=== PATIENT | female | born 1990 | race Hispanic/Latino ===

== ENCOUNTER 2020-05-05 11:27 | Day surgery (SDC) | payer BC ==
[2020-05-05] MEDS ORDERED: dexAMETHasone 10 MG/ML VIAL ONE (11:52)
[2020-05-05] MEDS ORDERED: propofoL 200 MG/20 ML VIAL IV ONE (11:52)
[2020-05-05] MEDS ORDERED: LIDOCAINE 2% MPF 5 ML VIAL ONE (11:52)
[2020-05-05] MEDS ORDERED: Ringers Lactate 1,000 ML IV ONE (11:52)
[2020-05-05] MEDS ORDERED: FENTANYL CITR 100 MCG/2 ML ONE (11:52)
[2020-05-05] MEDS ORDERED: MIDAZOLAM HCL 2 MG/2 ML INJ ONE (11:52)
[2020-05-05] MEDS ORDERED: ROCURONIUM 50 MG/5 ML VIAL IV ONE (11:52)
[2020-05-05] MEDS ORDERED: ONDANSETRON 4 MG/2 ML VIAL ONE ×2 (11:53→14:54)
[2020-05-05] MEDS ORDERED: CEFOXITIN/SWI 1gm 1 GM/10 ML SYR ONE (11:53)
[2020-05-05 12:13] LABS: Hematocrit 35.2 % (36.0-45.0); MPV 8.9 fL (7.6-11.3); RBC Red Blood Cell Count 4.29 M/uL (3.86-4.86)
[2020-05-05 13:04] LABS: BUN Blood Urea Nitrogen 11 mg/dL (7-18); Bicarbonate 28 mmol/L (21-32); Glucose Level 87 mg/dL (74-106); Potassium 3.9 mmol/L (3.5-5.1); Sodium Level 144 mmol/L (136-145)
[2020-05-05] MEDS ORDERED: GLYCOPYRROLATE 0.2 MG/ML SYR ONE (14:05)
[2020-05-05] MEDS ORDERED: KETOROLAC 30 MG/ML INJ ONE (14:27)
[2020-05-05] MEDS ORDERED: MORPHINE 10 MG/ML VIAL ONE (14:30)
[2020-05-05] MEDS ORDERED: Mastisol Adhesive Liq ONE ×2 (14:31→14:32)
--- NOTE | 2020-05-05 14:31 | P.BOP ---
Preoperative diagnosis: cholecystitis, biliary dyskinesia, morbid obesity Postoperative diagnosis: same plus umbilical hernia Primary procedure: Laparoscopic cholecystectomy Secondary procedure: open umbilical hernia repair Sandwich Board Carrier: Angelica Cheney (Ramses) Estimated blood loss: <10cc Specimen: gb Findings: as above Anesthesia: General Complications: None Transferred to: Recovery Room Condition: Good
[2020-05-05] MEDS: HYDROMORPHONE HCL 1 MG/ML INJ ONE ×4 (14:41→14:56)
[2020-05-05 15:39] VITALS: BP 124/75; TEMP 96.6; O2SAT 96
[2020-05-05] MEDS ORDERED: CODEINE 30MG/APAP 300MG TAB ONE (15:45)
--- NOTE | 2020-05-05 15:53 | OP ---
Date of Procedure: 05/05/2020 Surgeon: Leonel Lawton MD Preoperative Diagnoses: Cholecystitis, right upper quadrant abdominal pain, biliary dyskinesia, morb id obesity. Postoperative Diagnoses: Cholecystitis, right upper quadrant abdominal pain, biliary dyskinesia, mor bid obesity, umbilical hernia. Procedures Performed: Laparoscopic cholecystectomy, repair of umbilical hernia. Anesthesia: General plus local. Specimen: Gallbladder. Indications: This is a case of a female, who comes to us with above diagnoses. Fully explained the benefits, alternatives, and risks of laparoscopic, possible open cholecystectomy, which include, but not limited to infection, bleeding, damage to adjacent structures, anesthesia complication, choledoch olithiasis, bile leak, pancreatitis, [place], and even . She also understands this may not relieve s ymptoms. She might need more than one surgical intervention. She understood, signed a consent. Description Of Procedure: The patient was brought to the operating room, placed in supine position. Anesthesia was done without complication. Abdominal area was prepped and draped in sterile fashion. Marcaine 0.5% was injected for local anesthetic followed by sharp incision of the skin in infraumbi lical region. Incision was carried down to fascia. Immediately, we noticed the patient to have umbi lical hernia. Umbilical sac was removed. Fascial edges were cleaned. We extended incision and put Vicryl #1 inside the fascia. Bk trocar was carefully introduced. No bleeding was obtained. Aft er that, I placed 3 more trocars, 5 mm each one of them in the right upper quadrant under direct visu alization. This allowed me to put a grasper in the fundus of the gallbladder and another grasper in the infundibulum retracting the gallbladder in the inferolateral fashion, exposing the triangle of Ca lot, obtaining critical view. Cystic duct and cystic artery were clearly isolated free circumferenti ally and a connection between those and the gallbladder was identified. I proceeded to ligate those by using at least 3 clips proximal, 1 clip distal, ligation in middle. Same was done with the cystic artery. No bile leak. No bleeding. The gallbladder was removed from liver using Bovie cauterizer and removed from abdominal cavity using EndoCatch through the umbilical incision. The area was inspe cted once again. No bile leak. No bleeding. Clips were intact. At that moment, I proceeded to rem ove the trocars under direct vision, deflated pneumoperitoneum, closed the fascia with #1 Vicryl and closed the umbilical hernia with #1 Vicryl. Irrigated subcutaneous tissue, closed that with 3-0 chromosomal disorders counselor jean claude and skin in a subcuticular fashion with 3-0 chromic and Steri-Strips on top. Sponge count, instr ument counts were correct. The patient tolerated the procedure well. The patient was sent to recover y in stable condition. JOSE MANUEL/JEFF Voice ID: [id number] Report ID: [id number]
--- NOTE | 2020-05-05 15:55 | DS ---
Diagnoses: Cholecystitis, biliary dyskinesia, morbid obesity and also umbilical hernia. Procedures: Laparoscopic cholecystectomy and repair of umbilical hernia. Disposition: Home. Activity: As tolerated. No heavy lifting. Plan: Follow up in my office in 1 week. Call for an appointment at [phone]. Keep area dry for 48 h ours, then may shower. Keep Steri-Strips intact. Medications: Include Tylenol No. 3 q.4 hours p.r.n. pain, Zofran p.r.n. nausea and Bactrim DS p.o. b .i.d. JOSE MANUEL/JEFF Voice ID: [id number] Report ID: [id number]
== END 2020-05-05 16:22 | disposition home or self-care (01) ==
LOC: OR 11:27
PROVIDERS: ATTEND Surgery
PROC: 0WQF0ZZ Repair Abdominal Wall, Open Approach (ICD-10-PCS; 2020-05-05)
PROC: 0FT44ZZ Resection of Gallbladder, Percutaneous Endoscopic Approach (ICD-10-PCS; principal; 2020-05-05 12:30)
DX: K80.10 Calculus of gallbladder with chronic cholecystitis without obstruction (principal); K42.9 Umbilical hernia without obstruction or gangrene; K82.8 Other specified diseases of gallbladder; E66.01 Morbid (severe) obesity due to excess calories; Z20.822 Contact with and (suspected) exposure to COVID-19
CPT/HCPCS: 80048; 36415; 84703; 88304; 85027; 47562; 49585; U0003; J2704; J2250; J3010; J1100; J1170 ×2; J7120; J2405 ×2